=== PATIENT | female | born 1995 | race Hispanic/Latino ===

== ENCOUNTER 2021-07-12 11:04 | Emergency (ER) | payer SELFPAY ==
--- NOTE | 2021-07-12 12:58 | RAD REPORT ---
EXAM DESCRIPTION: RAD - Ankle Right 3 View - 07/12/2021 12:42 pm CLINICAL HISTORY: SWELLING COMPARISON: No comparisons FINDINGS: Mild soft tissue swelling is present about the ankle. No acute fracture or dislocation see n. Moderate plantar calcaneal spur.
--- NOTE | 2021-07-12 13:33 | EDPHYS ---
Physician Documentation [facility] Name: Ksenia Tejeda Age: 26 yrs Sex: Female : 1995 Arrival Date: 07/12/2021 Time: 11:06 Bed 10 Private MD: ED Physician Foster Hernandez HPI: 07/12 11:33 This 26 yrs old Female presents to ER via Wheelchair with complaints of Ankle ma2 Injury. 11:33 The patient presents with an injury. Onset: The symptoms/episode began/occurred ma2 suddenly, 1 day(s) ago. Associated signs and symptoms: Pertinent negatives: rash, tingling, warmth. Severity of symptoms: At their worst the symptoms were mild, in the emergency department the symptoms are unchanged. The patient has experienced similar episodes in the past. Historical: - Allergies: 11:11 No Known Allergies; ll1 - PMHx: 11:11 PCOS; Migraine; Asthma; ll1 - PSHx: 11:11 None; ll1 - Immunization history:: Client reports having NOT received the Covid vaccine. Flu vaccine status is unknown. - Social history:: Smoking status: Patient denies any tobacco usage or history of. - Family history:: not pertinent. ROS: 11:33 Constitutional: Negative for fever, chills, and weight loss. ma2 11:33 All other systems are negative. Exam: 11:33 Head/Face: Normocephalic, atraumatic. Chest/axilla: Normal chest wall appearance and ma2 motion. Nontender with no deformity. No lesions are appreciated. Cardiovascular: Regular rate and rhythm with a normal S1 and S2. No gallops, murmurs, or rubs. Normal PMI, no JVD. No pulse deficits. Respiratory: Lungs have equal breath sounds bilaterally, clear to auscultation and percussion. No rales, rhonchi or wheezes noted. No increased work of breathing, no retractions or nasal flaring. Abdomen/GI: Soft, non-tender, with normal bowel sounds. No distension or tympany. No guarding or rebound. No evidence of tenderness throughout. Back: No spinal tenderness. No costovertebral tenderness. Full range of motion. Skin: Warm, dry with normal turgor. Normal color with no rashes, no lesions, and no evidence of cellulitis. MS/ Extremity: Tenderness to palpation over right lateral malleolus, otherwise ankle exams unremarkable, foot exam is within normal limits. Knee exam is within normal limits. Pulses equal, no cyanosis. Neurovascular intact. Full, normal range of motion. Neuro: Awake and alert, GCS 15, oriented to person, place, time, and situation. Cranial nerves II-XII grossly intact. Motor strength 5/5 in all extremities. Sensory grossly intact. Cerebellar exam normal. Normal gait. Vital Signs: 11:12 BP 130 / 74; Pulse 104; Resp 16; Temp 98.2; Pulse Ox 98% ; Weight 108.86 kg; Height 5 ll1 ft. 2 in. (157.48 cm); Pain 3/10; 12:25 BP 125 / 87; Pulse 86; Resp 16; Pulse Ox 100% ; vg1 11:12 Body Mass Index 43.90 (108.86 kg, 157.48 cm) ll1 MDM: 11:20 Patient medically screened. ma2 11:33 Differential diagnosis: fracture, sprain, arthritis, gout, Patient declined pain ma2 medicine in the ER. 13:32 Data reviewed: vital signs, nurses notes. Counseling: I had a detailed discussion with ma2 the patient and/or guardian regarding: the historical points, exam findings, and any diagnostic results supporting the discharge/admit diagnosis, the presence of at least one elevated blood pressure reading (>120/80) during this emergency department visit, the need for outpatient follow up. Response to treatment: the patient's symptoms have markedly improved after treatment. 07/12 11:20 Order name: Ankle Right 3 View XRAY; Complete Time: 13:02 vg1 07/12 13:39 Order name: Crutches; Complete Time: 13:51 ma2 Administered Medications: No medications were administered Disposition Summary: 07/12/21 13:33 Discharge Ordered Location: Home ma2 Condition: Stable ma2 Diagnosis - Sprain of unspecified ligament of right ankle ma2 Followup: ma2 - With: Private Physician - When: Tomorrow - Reason: Continuance of care Discharge Instructions: - Discharge Summary Sheet ma2 - Ankle Sprain, [id number] ma2 Forms: - Medication Reconciliation Form ma2 - Thank You Letter ma2 - Antibiotic Education ma2 - Prescription Opioid Use ma2 Prescriptions: - Diclofenac Sodium 75 mg Oral Tablet Sustained Release - take 1 tablet by ORAL route 2 times per day; 30 tablet; Refills: 0, Product ma2 Selection Permitted Signatures: Dispatcher [employer] Foster Mcneill MD MD ma2 Moni Kyle RN RN ll1
--- NOTE | 2021-07-12 13:33 | ER ---
Nurse's Notes [facility] Name: Ksenia Tejeda Age: 26 yrs Sex: Female : 1995 Arrival Date: 07/12/2021 Time: 11:06 Bed 10 Private MD: Diagnosis: Sprain of unspecified ligament of right ankle Presentation: 07/12 11:12 Chief complaint: Patient states: R ankle pain since stepping in a hole last night. ll1 Coronavirus screen: Vaccine status: Patient reports being unvaccinated. Client denies travel out of the [place] in the last 14 days. At this time, the client does not indicate any symptoms associated with coronavirus-19. Ebola Screen: Patient denies travel to an Ebola-affected area in the 21 days before illness onset. Initial Sepsis Screen: Does the patient meet any 2 criteria? No. Patient's initial sepsis screen is negative. Does the patient have a suspected source of infection? No. Patient's initial sepsis screen is negative. Risk Assessment: Do you want to hurt yourself or someone else? Patient reports no desire to harm self or others. Onset of symptoms was July 11, 2021. 11:12 Method Of Arrival: Wheelchair ll1 11:12 Acuity: LOIS 4 ll1 Historical: - Allergies: 11:11 No Known Allergies; ll1 - PMHx: 11:11 PCOS; Migraine; Asthma; ll1 - PSHx: 11:11 None; ll1 - Immunization history:: Client reports having NOT received the Covid vaccine. Flu vaccine status is unknown. - Social history:: Smoking status: Patient denies any tobacco usage or history of. - Family history:: not pertinent. Screenin:22 Abuse screen: Denies threats or abuse. Nutritional screening: No deficits noted. vg1 Tuberculosis screening: No symptoms or risk factors identified. Fall Risk Fall in past 12 months (25 points). No secondary diagnosis (0 pts). No IV (0 pts). Ambulatory Aid- Crutches/Cane/Walker (15 pts). Gait- Normal/Bed Rest/Wheelchair (0 pts) Mental Status- Oriented to own ability (0 pts). Total Moses Fall Scale indicates High Risk Score (45 or more points). Fall prevention measures have been instituted. Side Rails Up X 2 Placed Close to Nursing Station Family Present and informed to notify staff if the need to leave the bedside. Assessment: 11:20 General: Appears in no apparent distress. comfortable, Behavior is calm, cooperative. vg1 Pain: Complains of pain in right lateral malleolus Pain currently is 2 out of 10 on a pain scale. at worst was 8 out of 10 on a pain scale. Aggravated by weight bearing. Neuro: Level of Consciousness is awake, alert, obeys commands, Oriented to person, place, time, situation. Cardiovascular: Capillary refill < 3 seconds in bilateral fingers Patient's skin is warm and dry. Pulses are palpable in right dorsalis pedis artery and left dorsalis pedis artery. Respiratory: Airway is patent Respiratory effort is even, unlabored. GI: No signs and/or symptoms were reported involving the gastrointestinal system. : No signs and/or symptoms were reported regarding the genitourinary system. EENT: No signs and/or symptoms were reported regarding the EENT system. Derm: Skin is intact, is healthy with good turgor. Musculoskeletal: Circulation, motion, and sensation intact. Swelling present in right lateral malleolus. 12:20 Reassessment: Patient appears in no apparent distress at this time. No changes from vg1 previously documented assessment. Patient and/or family updated on plan of care and expected duration. Pain level reassessed. Patient is alert, oriented x 3, equal unlabored respirations, skin warm/dry/pink. 13:51 Reassessment: Patient appears in no apparent distress at this time. No changes from vg1 previously documented assessment. Patient is alert, oriented x 3, equal unlabored respirations, skin warm/dry/pink. Vital Signs: 11:12 BP 130 / 74; Pulse 104; Resp 16; Temp 98.2; Pulse Ox 98% ; Weight 108.86 kg; Height 5 ll1 ft. 2 in. (157.48 cm); Pain 3/10; 12:25 BP 125 / 87; Pulse 86; Resp 16; Pulse Ox 100% ; vg1 11:12 Body Mass Index 43.90 (108.86 kg, 157.48 cm) ll1 ED Course: 11:06 Patient arrived in ED. mr 11:11 Arm band placed on. ll1 11:13 Triage completed. 1 11:16 Candice Yung, RN is Primary Nurse. vg1 11:20 Foster Hernandez MD is Attending Physician. ma2 11:22 Patient has correct armband on for positive identification. Bed in low position. Call vg1 light in reach. Side rails up X 1. Adult w/ patient. 11:22 No provider procedures requiring assistance completed. Patient did not have IV access vg1 during this emergency room visit. 12:42 Ankle Right 3 View XRAY In Process Unspecified. EDMS Administered Medications: No medications were administered Outcome: 13:33 Discharge ordered by . [facility] 13:51 Discharged to home ambulatory, with crutches, with family. vg1 13:51 Condition: stable 13:51 Discharge instructions given to patient, family, Instructed on discharge instructions, follow up and referral plans. medication usage, crutch walking, Demonstrated understanding of instructions, follow-up care, medications, crutch walking, Prescriptions given X 1. 13:51 Patient left the ED. vg1 Signatures: Dispatcher [employer] EDMS Valeria Varghese Foster Hernandez MD MD ma2 Candice Yung, RN RN vg1 Moni Kyle RN RN 1
[2021-07-12 14:04] VITALS: TEMP 98.2
[2021-07-12 14:06] VITALS: BP 125/87; O2SAT 100
== END 2021-07-12 13:51 | disposition home or self-care (01) ==
LOC: ER 11:04
DX: S93.401A Sprain of unspecified ligament of right ankle, initial encounter (principal); W17.2XXA Fall into hole, initial encounter; Y93.9 Activity, unspecified; Y92.9 Unspecified place or not applicable
CPT/HCPCS: 99283